=== PATIENT | female | born 1955 | race Caucasian/White ===

== ENCOUNTER → 2016-09-10 | Outpatient (CLI) | payer OTHER ==
[~2016-09-10] MED LIST: AMLO10TA2 PO; ARIP5TAB10 PO; ASCO-297 PO; ASPI-558 PO; CALC-494 PO; ESCI20TA22 PO; IBUP-1842 PO; LANS15CA5 PO; LANS15CA9 PO; LEVO175T39 PO; LEVO200T3 PO; LISI-621 PO; LISI1TAB11 PO; MULT-806 PO; MULT-980 PO; SIMV10TA6 PO; SIMV5TAB PO; TRAM50TA4 PO; VIT1CAPS21 PO
--- NOTE | 2016-09-10 15:27 | DI ---
Indication: ITS.REASON: [id number] left shoulder pain for several months. No reported trauma. PROCEDURE: MRI SHOULDER LEFT W/O CONTRAST: Encounter: Initial Comparison: None Technique: Multiplanar multisequence MR imaging of the left shoulder was performed without contrast. Findings: There is a longitudinal split tear of the long head biceps tendon best seen on axial image #10. The tendon is located within the bicipital groove. There is some tendinopathy or partial tearing of the distal subscapularis tendon. There is articular surface partial tearing of the distal supraspinatus tendon involving approximately 50% depth of the anterior half of the tendon. No complete or full-thickness tear appreciated. The infraspinatus and teres minor tendons are intact. No acute fracture. Mild acromioclavicular degenerative change. Severe glenohumeral degenerative change with a [id number] appearance and subchondral cyst formation with extensive edema in the humeral head. Extensive degenerative tearing of the labrum. Mild atrophy of the supra and infraspinatus muscles. Impression: 1. Advanced degenerative change of the glenohumeral joint. 2. Partial tearing of the supraspinatus. 3. Longitudinal split tear of the long head biceps. .
== END ==
LOC: IMA 13:30
PROVIDERS: ATTEND Orthopaedic Surgery
DX: S46.012A Strain of muscle(s) and tendon(s) of the rotator cuff of left shoulder, initial encounter (principal); S46.112A Strain of muscle, fascia and tendon of long head of biceps, left arm, initial encounter; X58.XXXA Exposure to other specified factors, initial encounter; Y93.9 Activity, unspecified; Y92.9 Unspecified place or not applicable; Y99.9 Unspecified external cause status; M19.012 Primary osteoarthritis, left shoulder; M13.812 Other specified arthritis, left shoulder

== ENCOUNTER 2016-10-04 07:22 | Inpatient (IN) | payer OTHER ==
--- NOTE | 2016-09-14 12:00 | NUR ---
PMH, allergies, meds reviewed and documented. Preop and DOS instructions given including handouts of medications to stop before surgery, shower instructions with CHG soap, Surgical Services pamphlet, and my contact information.
--- NOTE | 2016-09-28 13:11 | NUR ---
Medication dosage Discrepancy noted between patient med list, Dr Max med list with regard to Lisinopril/HCTZ dosage, dosage confirmed with [facility] and courtesy letter faxed to Dr Max.
[~2016-10-04] VITALS: Ht 172.7 cm; Wt 105.5 kg
[2016-10-04] VITALS (29 sets, daily range): BP systolic 102–138; BP diastolic 53–96; PULSE 68–105; RESP 12–18; TEMP 96.2–98; O2SAT 88–98; Ht 172.7 cm; Wt 105.5 kg
[~2016-10-04 07:22] MED LIST changes: +ACETAMINOPHEN 500 MG TABLET PO ONE; -ASPI-558 PO; +EPINEPHRINE 0.25 MG, BUPIVACAINE 0.25% 75 MG, KETOROLAC 60 MG in NORMAL SALINE 30 ML INJ ONE; +FAMOTIDINE 20mg IVPB 50 ML IV ONE; -LANS15CA5 PO; -LEVO175T39 PO; +LIDOCAINE 1% (10mg/ml) 2ml SDV SQ ONE; +LR 1,000 ML IV SCH; +METOCLOPRAMIDE 10mg/2ml INJECTION IV ONE; -MULT-806 PO; +NOZIN NASAL SWAB NS ONE; +ONDANSETRON 4mg/2ml INJECTION IV ONE; -SIMV10TA6 PO; +SIMV20TA6 PO; -SIMV5TAB PO
--- OUTSIDE RECORDS SUMMARY | 2016-10-04 07:26 | XMS REPORT | Referral Summary ---
Author Author [facility], [facility] Organization [facility] Address Unknown Phone Unavailable Care Team Providers Care Career Development Facilitator Name Role Phone Omar Max Primary Care Physician [phone] Encounter VC Date(s): 04/16/16 - 04/16/16 [facility], [address] [place] [address] Discharge Diagnosis: Depression Discharge Diagnosis: Other specified hypothyroidism Discharge Diagnosis: Other hyperlipidemia Discharge Diagnosis: Need for hepatitis C screening test Discharge Diagnosis: HTN (hypertension) Discharge Diagnosis: Acute serous otitis media of left ear without rupture Discharge Disposition: 01-Home or Self Care Attending Physician: Kizzy Max DO Admitting Physician: Kizzy Max DO Vital Signs Most recent to 1 oldest [Reference Range]: Temperature Tympanic 36.8 degC [36.6-38.1 degC] (04/16/16 1:03 PM) Peripheral Pulse 88 bpm Rate [60-100 bpm] (04/16/16 1:03 PM) Respiratory Rate 16 br/min [14-20 br/min] (04/16/16 1:03 PM) Blood Pressure 138/80 mmHg [90-140/60-90 mmHg] (04/16/16 1:03 PM) SpO2 98 % (04/16/16 1:03 PM) Problem List Condition Effective Dates Status Health Status Informant Depression(Confirmed Resolved ) GERD(Confirmed) Resolved S/P total knee Active arthroplasty(Confirm ed) HX of chronic pelvic Active pain, and chronic diffuse trigonitis(Confirmed ) Hx of mild chronic Active IC(Confirmed) HX of difficulty Active w/urination, and urethral stenosis(Confirmed) HX of painless Active microscopic hematuria & trabeculated bladder(Confirmed) HTN Resolved (hypertension)(Confi rmed) Hyperlipidemia(Confi Resolved rmed) Hypothyroid(Confirme Resolved d) Hypothyroidism Active (disorder)(Confirmed ) Meniere's disease, Active right ear(Confirmed) Obesity(Confirmed) Active patient Patellar tendonitis Active of left knee(Confirmed) Primary Active osteoarthritis of left knee(Confirmed) TINNITUS, Active UNSPECIFIED(Confirme d) Tobacco Active patient user(Confirmed) Allergies, Adverse Reactions, Alerts Substance Reaction Severity Status morphine Hallucinations Active nitrofurantoin Active Percocet 5/325 Hallucinations Active sulfamethoxazole Active trimethoprim Active Medications amLODIPine 10 mg oral tablet See Instructions, TAKE ONE TABLET BY MOUTH EVERY DAY, # 90 tabs, 3 Refill(s), Pharmacy: [facility], TAKE ONE TABLET BY MOUTH EVERY DAY Start Date: 03/13/15 Status: Ordered ARIPiprazole 5 mg oral tablet See Instructions, TAKE ONE TABLET BY MOUTH ONCE DAILY, # 30 tabs, 3 Refill(s), eRx: [id number], TAKE ONE TABLET BY MOUTH ONCE DAILY Start Date: 02/09/16 Status: Ordered Aspir 81 mg, Oral, Daily, 0 Refill(s) Start Date: 11/20/13 Status: Ordered Augmentin 875 mg-125 mg oral tablet 1 tabs, Oral, q12hr, X 10 days, # 20 tabs, 0 Refill(s), Pharmacy: [place] [id number] Start Date: 04/16/16 Stop Date: 04/26/16 Status: Ordered Calcium 600+D 1 tabs, Oral, Daily, 0 Refill(s) Start Date: 08/13/14 Status: Ordered escitalopram 20 mg oral tablet See Instructions, TAKE ONE TABLET BY MOUTH ONCE DAILY, # 90 tabs, eRx: [id number], TAKE ONE TABLET BY MOUTH ONCE DAILY Start Date: 03/22/16 Status: Ordered lisinopril 20 mg oral tablet 1 tabs, Oral, Daily, # 30 tabs, 0 Refill(s) Start Date: 08/16/14 Status: Ordered lisinopril-hydrochlorothiazide 10 mg-12.5 mg oral tablet 1 tabs, Oral, Daily, # 30 tabs, 0 Refill(s), other reason (Rx) Start Date: 01/21/16 Status: Ordered multivitamin Daily, 0 Refill(s) Start Date: 11/20/13 Status: Ordered Prevacid 15 mg oral delayed release capsule 1 caps, Oral, BID, dc order for generic-insurance will only fill name brand prevacid, # 180 caps, 3 Refill(s), Indication: Gerd, Pharmacy: [id number], Insurance said they will cover Prevacid- not the generic- please fill with Prevacid does... Start Date: 02/27/14 Status: Ordered simvastatin 10 mg oral tablet See Instructions, TAKE ONE TABLET BY MOUTH AT BEDTIME, # 90 tabs, eRx: [id number], TAKE ONE TABLET BY MOUTH AT BEDTIME Start Date: 03/19/16 Status: Ordered Synthroid 200 mcg (0.2 mg) oral tablet See Instructions, TAKE ONE TABLET BY MOUTH ONCE DAILY, # 30 tabs, 2 Refill(s), LIDA, eRx: [id number], TAKE ONE TABLET BY MOUTH ONCE DAILY Start Date: 04/09/16 Status: Ordered Tylenol Extra Strength See Instructions, as needed for pain, 325 mg Oral q6hr, 0 Refill(s) Start Date: 05/23/14 Status: Ordered Vitamin C 500 mg oral tablet 2 tabs, Oral, Daily, 0 Refill(s) Start Date: 11/20/13 Status: Ordered Voltaren 1% topical gel 2 g, Topical, QID, # 100 g, 2 Refill(s), Pharmacy: [id number] Start Date: 07/03/15 Status: Ordered Results Chemistry Most recent to 1 oldest [Reference Range]: Sodium Lvl [135-144 143 mEq/L mEq/L] (04/16/16 1:45 PM) Potassium Lvl 4.4 mEq/L [3.5-5.2 mEq/L] (04/16/16 1:45 PM) Chloride [99-111 103 mEq/L mEq/L] (04/16/16 1:45 PM) CO2 [22-31 mEq/L] 31 mEq/L (04/16/16 1:45 PM) AGAP [3-20] 9 (04/16/16 1:45 PM) BUN [10-20 mg/dL] 11 mg/dL (04/16/16 1:45 PM) Glucose Lvl [70-99 76 mg/dL mg/dL] (04/16/16 1:45 PM) Creatinine Lvl 0.82 mg/dL [0.57-1.11 mg/dL] (04/16/16 1:45 PM) eGFR [>60 mL/min] >60 mL/min 1 (04/16/16 1:45 PM) Calcium Lvl 10.1 mg/dL [8.9-10.5 mg/dL] (04/16/16 1:45 PM) Albumin Lvl [3.4-4.8 4.4 gm/dL gm/dL] (04/16/16 1:45 PM) Total Protein 6.9 gm/dL [6.0-7.6 gm/dL] (04/16/16 1:45 PM) Globulin [1.8-4.0 2.5 gm/dL gm/dL] (04/16/16 1:45 PM) ALT [0-55 U/L] 21 U/L (04/16/16 1:45 PM) AST [5-34 U/L] 20 U/L (04/16/16 1:45 PM) Alk Phos [40-150 121 U/L U/L] (04/16/16 1:45 PM) Bili Total [0.2-1.2 0.4 mg/dL mg/dL] (04/16/16 1:45 PM) Hep C Ab Negative (04/16/16 1:45 PM) TSH with Reflex Free 0.81 T4 [0.35-4.94] (04/16/16 1:45 PM) 1Result Comment: Multiply eGFR results by 1.21 for race. Immunizations Vaccine Date Refusal Reason hepatitis B adult vaccine 05/14/11 measles/mumps/rubella virus vaccine 05/14/11 pneumococcal 13-valent conjugate vaccine 03/13/15 pneumococcal 23-polyvalent vaccine 10/30/08 tetanus-diphth toxoids (Td) adult/adol 03/13/15 tetanus-diphth toxoids (Td) adult/adol 12/24/02 Procedures Procedure Date Related Diagnosis Body Site Collection of venous blood by venipuncture 04/16/16 L TKA [facility] 06/11/14 Cystoscopy, urethral calibration, and 07/31/07 dilation Hydrodistention, and SLT laser vaporation 07/31/07 Cryosurgery Dilation and curettage History of rhinoplasty Hysterectomy Tonsillectomy and adenoidectomy Total shoulder replacement 1715.36 OA GLOBAL ENDS 09/09/2014 Social History Social History Type Response Smoking Status Current every day smoker; Type: Cigarettes; Tobacco use per day: Less than Pack; Ready to change: No Assessment and Plan Extracted from: Title: Ambulatory Patient Education Author: Kizzy Max DO Date: ENT Otitis Media, Adult Otitis media is redness, soreness, and inflammation of the middle ear. Otitis media may be caused by allergies or, most commonly, by infection. Often it occurs as a complication of the common cold. SIGNS AND SYMPTOMS Symptoms of otitis media may include: Earache. Fever. Ringing in your ear. Headache. Leakage of fluid from the ear. DIAGNOSIS To diagnose otitis media, your health care provider will examine your ear with an otoscope. This is an instrument that allows your health care provider to see into your ear in order to examine your eardrum. Your health care provider also will ask you questions about your symptoms. TREATMENT Typically, otitis media resolves on its own within 35 days. Your health care provider may prescribe medicine to ease your symptoms of pain. If otitis media does not resolve within 5 days or is recurrent, your health care provider may prescribe antibiotic medicines if he or she suspects that a bacterial infection is the cause. HOME CARE INSTRUCTIONS If you were prescribed an antibiotic medicine, finish it all even if you start to feel better. Take medicines only as directed by your health care provider. Keep all follow-up visits as directed by your health care provider. SEEK MEDICAL CARE IF: You have otitis media only in one ear, or bleeding from your nose, or both. You notice a lump on your neck. You are not getting better in 35 days. You feel worse instead of better. SEEK IMMEDIATE MEDICAL CARE IF: You have pain that is not controlled with medicine. You have swelling, redness, or pain around your ear or stiffness in your neck. You notice that part of your face is paralyzed. You notice that the bone behind your ear (mastoid) is tender when you touch it. MAKE SURE YOU: Understand these instructions. Will watch your condition. Will get help right away if you are not doing well or get worse. This information is not intended to replace advice given to you by your health care provider. Make sure you discuss any questions you have with your health care provider. Document Released: 03/04/2005 Document Revised: 06/20/2015 Document Reviewed: [employer] Patient Education 2016 [employer] No follow up information was provided. Extracted from: Title: Office Visit Note Author: Kizzy Max DO Date: 04/16/16 Assessment/Plan Acute serous otitis media of left ear without rupture Amoxicillin, return to clinic if not improving. Ordered: Office Visit Level 4 Est 88062 Depression Continue current regimen, return to clinic in 6 months. Ordered: Office Visit Level 4 Est 57648 HTN (hypertension) Continue current regimen, return to clinic in 6 months. Ordered: Office Visit Level 4 Est 27764 Need for hepatitis C screening test Patient requested screening as she has not had had one, further recommendations after results. Ordered: Office Visit Level 4 Est 71841 Other hyperlipidemia CMP today, continue current regimen, return to clinic in 6 months. Ordered: Office Visit Level 4 Est 44724 Other specified hypothyroidism TSH today with further recommendations after results, return to clinic in 6 months. Ordered: Office Visit Level 4 Est 50384
--- OUTSIDE RECORDS SUMMARY | 2016-10-04 07:26 | XMS REPORT | Continuity of Care Document ---
Author Author [facility] Organization [facility] Address Unknown Phone Unavailable Care Team Providers Care Electrical And Instrument Technician Name Role Phone Sharri Todd Primary Care Physician [phone] Source Comments Some departments are not documenting in the electronic medical record. If you do not see the information that you expected, contact Release of Information in the Health Information Management department at [phone] for further assistance in locating additional records.[facility] Active Allergies and Adverse Reactions Allergen Noted Date Severity Reactions Comments Macrobid 04/15/2011 SEE COMMENTS Can't breathe Current Medications Prescription Sig. Disp. Refills Start End Date Status Date pentosan polysulfate Take 100 mg by mouth Active sodium (ELMIRON) 100 mg twice daily. Cap amLODIPine (NORVASC) 10 Take 10 mg by mouth Active mg tablet daily. estradiol (ESTRACE) 1 mg Take 1 mg by mouth daily. Active tablet citalopram (CELEXA) 40 mg Take 40 mg by mouth Active tablet daily. metoprolol XL (TOPROL XL) Take 50 mg by mouth Active 50 mg tablet daily. levothyroxine (SYNTHROID) Take 200 mcg by mouth Active 200 mcg tablet daily. lansoprazole DR Take 15 mg by mouth Active (PREVACID) 15 mg capsule daily. ASCORBATE CALCIUM Take 500 mg by mouth. Active (VITAMIN C PO) CALCIUM CARBONATE/VITAMIN Take by mouth. Active D3 (CALCIUM + D PO) MULTIVITAMIN PO Take by mouth. Active niacin 250 mg tablet Take 250 mg by mouth Active daily. Aspirin 81 mg Tab Take by mouth. Active ACETAMINOPHEN/DP-HYDRAM Take by mouth. Active HCL (TYLENOL PM PO) triamterene-hydrochloroth Take 1 Cap by mouth every 90 Cap 3 04/15/20 Active iazide (DYAZIDE) 37.5-25 morning. 11 mg per capsule methylPREDNIsolone Take 1 Tab by mouth Take 21 Tab 0 04/15/20 Active (MEDROL DOSPACK) 4 mg as directed. Follow 11 tablet instructions on package Active Problems Problem Noted Date Meniere disease 04/15/2011 Social History Tobacco Use Types Packs/Day Years Used Date Current Every Day Smoker Cigarettes Smokeless Tobacco: Never Used Alcohol Use Drinks/Week oz/Week Comments Yes 3 Standard 1.5 drinks or equivalent Last Filed Vital Signs Vital Sign Reading Time Taken Blood Pressure 150/84 04/15/2011 12:54 PM CDT Pulse 73 04/15/2011 12:54 PM CDT Temperature - - Respiratory Rate - - Height 1.727 m (5' 8") 04/15/2011 12:54 PM CDT Weight 98.975 kg (218 lb 3.2 oz) 04/15/2011 12:54 PM CDT Body Mass Index 33.18 04/15/2011 12:54 PM CDT Oxygen Saturation - - Plan of Care Health Maintenance Due Date Last Done Comments Hepatitis C Screening 1954 Physical (Comprehensive) 1961 Exam Pertussis Vaccine 1965 Tetanus Vaccine 1971 Cervical Cancer Screening 1975 Breast Cancer Screening 1994 Colorectal Cancer 2004 Screening Shingles Vaccine 2014 Influenza Vaccine 02/11/2017 Results from Last 3 Months Not on file
--- OUTSIDE RECORDS SUMMARY | 2016-10-04 07:27 | XMS REPORT | Continuity of Care Document ---
Author Author [facility] Organization [facility] Address Unknown Phone Unavailable Care Team Providers Care Pig Handler Name Role Phone MARIMAR DUTTON DO Primary Care Physician [phone] Insurance Providers Guarantor Sarah Cao Address [address] [place] [address] Email DENIED Payer [facility] Policy Number [id number] Subscriber's Name Sarah Cao Relationship 18 Self Group Number [id number] Effective Date 15 Chief Complaint and Reason for Visit Chief Complaint Ear Pain/Injury Reason for Visit [id number] Problems Active Problems Medical Problem Onset Date Status Eustachian tube dysfunction Unknown Acute Lip laceration Unknown Acute Past Problems Medical Problem Onset Date Eustachian tube dysfunction Unknown Medications Current Home Medications Medication Dose Units Route Directions Days Qty Instructions Start Date Amlodipine Besylate 10 Mg Tablet 10 Mg Oral Daily 04/14/16 Ascorbic Acid (Vitamin C) 1,000 Mg Tablet 1,000 Mg Oral Daily 25/03 Aspirin (Aspir 81) 81 Mg Tablet. 81 Mg Oral Daily 12/23/09 Calcium Citrate/Vitamin D3 (Citracal + D Caplet) 1 Tab Tablet 2 Tab Oral Daily 12/23/09 Escitalopram Oxalate (Lexapro) 20 Mg Tablet 20 Mg Oral Bedtime Lansoprazole (Prevacid) 15 Mg Capsule. 15 Mg Oral Daily Levothyroxine Sodium (Synthroid) 175 Mcg Tablet 175 Mcg Oral Daily 12/23/09 Multivitamins (Multivitamin) 1 Tab Tablet 1 Tab Oral Daily Simvastatin 5 Mg Tablet 5 Mg Oral Bedtime 09/11/13 Past Home Medications Medication Directions Ordered Status Mariia , 12/23/09 Discontinued Amlodipine Besylate (Norvasc) 5 Mg Tablet, 10 Mg Oral Daily 12/23/09 Discontinued Benzonatate (Tessalon Perles 200MG) 200 Mg Capsule, 200 Mg Oral As Needed 25/03 Discontinued Escitalopram Oxalate (Lexapro) 10 Mg Tablet, 20 Mg Oral Daily 12/23/09 Discontinued Fish Oil/[place]-3 Fatty Acids (Fish Oil 1,000 Mg Capsule) 1 Cap Capsule, 1 Cap Oral Daily 11/12/08 Discontinued Guaifenesin/D-Methorphan Hb (Mucinex Dm Tablet) 1 Tab.sr .12 H Tablet, 1 Tab.sr Oral As Needed 07/04/09 Discontinued Levofloxacin (Levaquin) 500 Mg Tablet, 500 Mg Oral Daily 12/23/09 Discontinued Meloxicam (Mobic) 15 Mg Tablet, 15 Mg Oral 0.5 Daily 11/12/08 Discontinued Norvasc , 12/23/09 Discontinued [place]-3 Fatty Acids (Fish Oil Concentrate) 1,000 Mg Capsule, 12/23/09 Discontinued Steroid Cream , 07/04/09 Discontinued Sulfamethoxazole/Trimethoprim (Bactrim Ds) 1 Tab Tablet, 1 Tab Oral Twice A Day 09/13/08 Discontinued Tramadol Hcl 50 Mg Tablet, 50 Mg Oral As Needed 12/23/09 Discontinued Social History Social History Problem Response Recorded Date/Time Onset Date Status Hx Substance Use No 09/11/2013 7:41am Not Applicable Not Applicable Hx Alcohol Use Y 3-4 WK 09/11/2013 7:41am Not Applicable Not Applicable Tobacco Usage none 09/11/2013 7:48am Not Applicable Not Applicable Hospital Discharge Instructions No hospital discharge instructions. Plan of Care Discharge Date 04/14/16 7:16pm Disposition 01 DISCHARGED HOME, SELF-CARE Condition at Discharge Stable Instructions/Education Provided DI for Eustachian Tube Dysfunction-Adult Prescriptions See Medication Section Referrals MARIMAR DUTTON DO Additional Instructions/Education Coricidin HBP if not, short course of Sudafed Flonase nasal spray twice a day for 3 days then once daily afterwards Zyrtec at bedtime Functional Status No functional status results. Allergies, Adverse Reactions, Alerts Allergen Type Severity Reaction Status Last Updated Sulfa (Sulfonamide Antibiotics) Allergy Mild Active 04/14/16 Nitrofurantoin Allergy Severe CAN'T BREATH Active 04/14/16 Immunizations Query Response on File Recorded Date/Time Hx Influenza Vaccination Y 03/2109/11/13 7:41am Hx Pneumococcal Vaccination No 09/11/13 7:41am Hx Influenza Vaccination Y 03/2109/11/13 7:41am Hx Tetanus Diptheria Y NOVEMBER 19 09/11/13 7:41am Influenza Vaccine Hx FALL 201504/14/16 6:46pm Tetanus Diptheria Vaccine History UP TO DATE 04/14/16 6:46pm Vital Signs Acute Vital Signs Vital Response Date/Time Temperature (Fahrenheit) 97.3 deg F (96.8 - 99.1) 04/14/2016 6:44pm Temperature (Calculated Celsius) 36.76284 degrees C (36.0 - 37.3) 04/14/2016 6:44pm Pulse Rate (adult) 65 bpm (60 - 100) 04/14/2016 6:44pm Respiratory Rate 16 breaths/min (10 - 20) 04/14/2016 6:44pm O2 Sat by Pulse Oximetry 95 % (90 - 100) 04/14/2016 6:44pm Blood Pressure 138/77 mm Hg 04/14/2016 6:44pm Height (Inches) 66.12 inches 04/14/2016 6:44pm Weight (Kilograms) 105.700 kg 04/14/2016 6:44pm Body Mass Index (BMI) 37.0 04/14/2016 6:44pm Results No known relevant diagnostic tests, laboratory data and/or discharge summary. Procedures No known history of procedures. Encounters Encounter Location Arrival/Admit Date Discharge/Depart Date Attending Provider Departed Emergency Room [facility] 04/14/16 5:55pm 04/14/16 7: 16pm DARVIN ZIEGLER APRN Recent Diagnosis
--- OUTSIDE RECORDS SUMMARY | 2016-10-04 07:27 | XMS REPORT | Continuity of Care Document ---
Author Author [facility] Organization [facility] Address Unknown Phone Unavailable Allergies Active Description Code Type Severity Reaction Onset Reported/Identified Relationship to Patient Clinical Status Yes Morphine 1545 Unknown N/A Yes Percocet 6992 Unknown N/A Yes Sulfa (Sulfonamide Antibiotics) 491 Unknown N/A Yes nitrofurantoin nitrofurantoin Drug Allergy Unknown N/A 08/08/2008 Yes MACROBID MACROBID Drug Allergy Unknown TROUBLE BREATHING 08/09/2008 Yes NO KNOW CONTRAST MEDIA ALLERGY NO KNOW CONTRAST MEDIA ALLERGY Drug Allergy Unknown N/A 2008 Yes No Known Contrast Allergies No Known Contrast Allergies Drug Allergy Unknown N/A 08/09/2008 Yes No Known Food Allergies No Known Food Allergies Drug Allergy Unknown N/A 08/09/2008 Yes NO KNOWN LATEX ALLERGY/SENSITI NO KNOWN LATEX ALLERGY/SENSITI Drug Allergy Unknown N/A 2008 Yes No Known Other Allergies No Known Other Allergies Drug Allergy Unknown N/A 08/09/2008 Yes Bactrim 5086 Unknown N/A 10/10/2012 Yes MACROBID MACROBID Drug Allergy Severe TROUBLE BREATHING 06/04/2014 Yes nitrofurantoin nitrofurantoin Drug Allergy Severe TROUBLE BREATHING 06/04/2014 Yes sulfamethoxazole sulfamethoxazole Drug Allergy Severe TROUBLE BREATHING 06/04/2014 Yes trimethoprim trimethoprim Drug Allergy Severe TROUBLE BREATHING 06/04/2014 Yes nitrofurantoin nitrofurantoin Drug Allergy Unknown UNKNOWN 06/04/2014 Yes sulfamethoxazole sulfamethoxazole Drug Allergy Unknown UNKNOWN 06/04/2014 Yes trimethoprim trimethoprim Drug Allergy Unknown UNKNOWN 06/04/2014 Medications Medication Packaging Start Date Stop Date Route Dosage Sig DOCUSATE SODIUM 09/27/2016 09/27/2016 BIDPRN ZOLPIDEM 09/27/2016 09/27/2016 HSPRN ACETAMINOPHEN 09/27/2016 09/27/2016 Q4HPRN ACETAMINOPHEN 09/27/2016 09/27/2016 Q4HPRN SODIUM CHLORIDE 0.9 % 09/27/2016 09/27/2016 PRNIV ALUM-MAG HYDROXIDE-SIMETH 09/27/2016 09/27/2016 Q4HPRN MAGNESIUM HYDROXIDE 09/27/2016 09/27/2016 HSPRN NITROGLYCERIN 09/27/2016 09/27/2016 PRNCP ACETAMINOPHEN 09/27/2016 09/27/2016 Q4HPRN Problems Date Dx Coded Attending Type Code Diagnosis Diagnosed By 06/11/2014 Erick Villegas MD 244.9 HYPOTHYROIDISM NOS 06/11/2014 Erick Villegas MD 272.4 HYPERLIPIDEMIA NEC/NOS 06/11/2014 Erick Villegas MD 305.1 TOBACCO USE DISORDER 06/11/2014 Erick Villegas MD 311 DEPRESSIVE DISORDER NEC 06/11/2014 Erick Villegas MD 349.82 TOXIC ENCEPHALOPATHY 06/11/2014 Erick Villegas MD 386.00 MENIERE'S DISEASE, UNSPECIFIED 06/11/2014 Erick Villegas MD 401.9 HYPERTENSION NOS 06/11/2014 Erick Villegas MD 427.89 CARDIAC DYSRHYTHMIAS NEC 06/11/2014 Erick Villegas MD 443.9 PERIPH VASCULAR DIS NOS 06/11/2014 Erick Villegas MD 496 CHR AIRWAY OBSTRUCT NEC 06/11/2014 Erick Villegas MD 518.81 ACUTE RESPIRATORY FAILURE 06/11/2014 Erick Villegas MD 530.81 ESOPHAGEAL REFLUX 06/11/2014 Erick Villegas MD 584.9 ACUTE RENAL FAILURE, UNSPECIFIED 06/11/2014 Erick Villegas MD 715.36 LOC OSTEOARTH NOS-L/LEG 06/11/2014 Erick Villegas MD 736.41 GENU VALGUM 06/11/2014 Erick Villegas MD 780.57 UNSPECIFIED SLEEP APNEA 06/11/2014 Erick Villegas MD 788.20 RETENTION OF URINE NOS 06/11/2014 Erick Villegas MD 790.29 OTHER ABNORMAL GLUCOSE 06/11/2014 Erick Villegas MD V43.61 SHOULDER JOINT REPLACEMENT STATUS Procedures Code Description Performed By Performed On 81.54 TOTAL KNEE REPLACEMENT Erick Villegas MD 06/11/2014 Results Test Result Range MRSA SURVEILLANCE SCREEN - 06/04/14 14:29 Microbiology CBC W/DIFF - 06/04/14 14:38 BASOPHIL # 0.1 k/cumm 0.0-0.2 BASOPHIL % 1 % 0-1 EOSINOPHIL # 0.3 k/cumm 0.1-0.5 EOSINOPHIL % 3 % 2-4 GRANULOCYTE # 7.6 k/cumm 2.0-9.0 GRANULOCYTE % 63 % 50-75 LYMPHOCYTE # 3.4 k/cumm 1.0-4.0 LYMPHOCYTE % 28 % 20-30 MEAN CELL HGB 30.0 pg 27.0-33.0 MEAN CELL HGB CONCENTRATION 34.1 g/dL 32.0-37.0 MEAN CELL VOLUME 88.0 fl 80.0-100.0 MONOCYTE # 0.6 k/cumm 0.1-1.0 MONOCYTE % 5 % 4-6 RED BLOOD CELL 5.00 m/cumm 4.00-6.00 RED CELL DISTRIBUTION WIDTH 14.6 % 11.0- 15.6 WHITE BLOOD CELL 12.0 k/cumm 5.0-10.0 HEMOGLOBIN 15.0 gm/dL 12.0-16.0 HEMATOCRIT 44.0 % 37.0-47.0 PLATELET COUNT 314 k/cumm 150-400 URINALYSIS, ROUTINE - 06/04/14 14:38 UA LEUKOCYTE ESTERASE DIPSTICK NEGATIVE NEGATIVE UA NITRITE DIPSTICK NEGATIVE NEGATIVE UA PROTEIN DIPSTICK NEGATIVE NEGATIVE UA GLUCOSE DIPSTICK NEGATIVE NEGATIVE UA KETONE DIPSTICK NEGATIVE NEGATIVE UA UROBILINOGEN DIPSTICK NORMAL NORMAL UA BILIRUBIN DIPSTICK NEGATIVE NEGATIVE UA BLOOD DIPSTICK NEGATIVE NEGATIVE UA SPECIFIC GRAVITY 1.004 1.015-1.025 UR PH 8.0 5.0-7.0 PROTHROMBIN TIME WITH INR - 06/04/14 14:38 INTERNATIONAL NORMAL RATIO 0.9 0.9-1.1 PROTHROMBIN TIME 10.1 sec 9.3-12.2 PARTIAL THROMBOPLASTIN TIME - 06/04/14 14:38 PARTIAL THROMBOPLASTIN TIME 35 sec 24-36 METABOLIC PANEL, BASIC - 06/04/14 14:38 POTASSIUM 4.1 mmol/L 3.5-5.3 EST GFR (MDRD) > 60 mL/min > 59 ANION GAP 6 mmol/L 5-15 EST CrCl (CG) > 60 mL/min > 59 GLUCOSE 77 mg/dL 70-99 CALCIUM 9.6 mg/dL 8.5-10.1 BLOOD UREA NITROGEN 11 mg/dL 7-20 CREATININE 0.8 mg/dL 0.6-1.0 SODIUM 138 mmol/L 135-148 CHLORIDE 102 mmol/L 98-110 CARBON DIOXIDE 30 mmol/L 21-32 GRAM STAIN - 06/11/14 13:09 Microbiology AFB SMEAR - 06/11/14 13:09 Microbiology FUNGUS SMEAR - 06/11/14 13:09 Microbiology GLUCOSE (POC) - 06/12/14 04:19 GLUCOSE (POC) 308 mg/dL 70-99 ARTERIAL BLOOD GAS - 06/12/14 04:26 ABG BASE EXCESS -5.3 meq/L -3.0-3.0 ABG BICARBONATE 25.7 meq/L 23.0-28.0 ABG L/M 10.0 ABG PCO2 81 mm Hg 34-45 ABG PEEP 8 CM ABG PH 7.12 7.35-7.45 ABG PEAK INSPIRATORY PRESSURE 20 CM ABG PO2 55 mm Hg 75-100 ABG VENT RATE 16 ABG O2 SATURATION 80 % 93-100 ABG SITE RT RADIAL CBC - 06/12/14 04:44 MEAN CELL HGB 29.6 pg 27.0-33.0 MEAN CELL HGB CONCENTRATION 31.9 g/dL 32.0-37.0 MEAN CELL VOLUME 92.9 fl 80.0-100.0 RED BLOOD CELL 4.25 m/cumm 4.00-6.00 RED CELL DISTRIBUTION WIDTH 15.1 % 11.0- 15.6 WHITE BLOOD CELL 18.0 k/cumm 5.0-10.0 HEMOGLOBIN 12.6 gm/dL 12.0-16.0 HEMATOCRIT 39.5 % 37.0-47.0 PLATELET COUNT 294 k/cumm 150-400 METABOLIC PANEL, COMPREHN - 06/12/14 04:44 POTASSIUM 3.9 mmol/L 3.5-5.3 EST GFR (MDRD) 27 mL/min > 59 ANION GAP 13 mmol/L 5-15 EST CrCl (CG) 36 mL/min > 59 GLUCOSE 285 mg/dL 70-99 CALCIUM 8.0 mg/dL 8.5-10.1 BLOOD UREA NITROGEN 17 mg/dL 7-20 CREATININE 2.0 mg/dL 0.6-1.0 SODIUM 135 mmol/L 135-148 CHLORIDE 98 mmol/L 98-110 AST/SGOT 22 Units/L 10-37 ALT/SGPT 24 Units/L < 66 CARBON DIOXIDE 24 mmol/L 21-32 TOTAL PROTEIN 7.0 gm/dL 6.4-8.2 ALBUMIN 3.6 gm/dL 3.4-5.0 BILI TOTAL 0.3 mg/dL 0.0-1.0 ALKALINE PHOSPHATASE TOTAL 124 IU/L 45- 117 ARTERIAL BLOOD GAS - 06/12/14 05:26 ABG BASE EXCESS -2.1 meq/L -3.0-3.0 ABG BICARBONATE 25.7 meq/L 23.0-28.0 ABG L/M 3.0 ABG PCO2 58 mm Hg 34-45 ABG PEEP 8 CM ABG PH 7.27 7.35-7.45 ABG PEAK INSPIRATORY PRESSURE 20 CM ABG PO2 85 mm Hg 75-100 ABG VENT RATE 16 ABG O2 SATURATION 95 % 93-100 ABG SITE RT RADIAL GLUCOSE (POC) - 06/12/14 11:09 GLUCOSE (POC) 81 mg/dL 70-99 METABOLIC PANEL, BASIC - 06/12/14 14:27 POTASSIUM 3.9 mmol/L 3.5-5.3 EST GFR (MDRD) 33 mL/min > 59 ANION GAP 7 mmol/L 5-15 EST CrCl (CG) 42 mL/min > 59 GLUCOSE 119 mg/dL 70-99 CALCIUM 8.1 mg/dL 8.5-10.1 BLOOD UREA NITROGEN 21 mg/dL 7-20 CREATININE 1.7 mg/dL 0.6-1.0 SODIUM 135 mmol/L 135-148 CHLORIDE 101 mmol/L 98-110 CARBON DIOXIDE 27 mmol/L 21-32 GLUCOSE (POC) - 06/12/14 15:32 GLUCOSE (POC) 114 mg/dL 70-99 GLUCOSE (POC) - 06/12/14 20:31 GLUCOSE (POC) 112 mg/dL 70-99 CBC - 06/13/14 04:46 MEAN CELL HGB 29.1 pg 27.0-33.0 MEAN CELL HGB CONCENTRATION 32.4 g/dL 32.0-37.0 MEAN CELL VOLUME 89.9 fl 80.0-100.0 RED BLOOD CELL 3.78 m/cumm 4.00-6.00 RED CELL DISTRIBUTION WIDTH 14.3 % 11.0- 15.6 WHITE BLOOD CELL 12.6 k/cumm 5.0-10.0 HEMOGLOBIN 11.0 gm/dL 12.0-16.0 HEMATOCRIT 34.0 % 37.0-47.0 PLATELET COUNT 232 k/cumm 150-400 METABOLIC PANEL, BASIC - 06/13/14 04:46 POTASSIUM 3.9 mmol/L 3.5-5.3 EST GFR (MDRD) 44 mL/min > 59 ANION GAP 4 mmol/L 5-15 EST CrCl (CG) 55 mL/min > 59 GLUCOSE 121 mg/dL 70-99 CALCIUM 8.3 mg/dL 8.5-10.1 BLOOD UREA NITROGEN 16 mg/dL 7-20 CREATININE 1.3 mg/dL 0.6-1.0 SODIUM 137 mmol/L 135-148 CHLORIDE 103 mmol/L 98-110 CARBON DIOXIDE 30 mmol/L 21-32 GLUCOSE (POC) - 06/13/14 06:34 GLUCOSE (POC) 124 mg/dL 70-99 GLUCOSE (POC) - 06/13/14 11:41 GLUCOSE (POC) 126 mg/dL 70-99 GLUCOSE (POC) - 06/13/14 15:28 GLUCOSE (POC) 106 mg/dL 70-99 GLUCOSE (POC) - 06/13/14 21:17 GLUCOSE (POC) 143 mg/dL 70-99 CBC - 06/14/14 04:15 MEAN CELL HGB 29.4 pg 27.0-33.0 MEAN CELL HGB CONCENTRATION 32.9 g/dL 32.0-37.0 MEAN CELL VOLUME 89.4 fl 80.0-100.0 RED BLOOD CELL 3.57 m/cumm 4.00-6.00 RED CELL DISTRIBUTION WIDTH 14.1 % 11.0- 15.6 WHITE BLOOD CELL 12.3 k/cumm 5.0-10.0 HEMOGLOBIN 10.5 gm/dL 12.0-16.0 HEMATOCRIT 31.9 % 37.0-47.0 PLATELET COUNT 230 k/cumm 150-400 METABOLIC PANEL, BASIC - 06/14/14 04:15 POTASSIUM 3.9 mmol/L 3.5-5.3 EST GFR (MDRD) > 60 mL/min > 59 ANION GAP 4 mmol/L 5-15 EST CrCl (CG) > 60 mL/min > 59 GLUCOSE 132 mg/dL 70-99 CALCIUM 8.5 mg/dL 8.5-10.1 BLOOD UREA NITROGEN 9 mg/dL 7-20 CREATININE 0.8 mg/dL 0.6-1.0 SODIUM 138 mmol/L 135-148 CHLORIDE 103 mmol/L 98-110 CARBON DIOXIDE 31 mmol/L - GLUCOSE (POC) - 06/14/14 05:57 GLUCOSE (POC) 120 mg/dL 70-99 GLUCOSE (POC) - 06/14/14 10:33 GLUCOSE (POC) 186 mg/dL 70-99 GLUCOSE (POC) - 06/14/14 15:23 GLUCOSE (POC) 114 mg/dL 70-99 GLUCOSE (POC) - 06/14/14 21:07 GLUCOSE (POC) 159 mg/dL 70-99 METABOLIC PANEL, BASIC - 06/15/14 05:48 POTASSIUM 3.3 mmol/L 3.5-5.3 EST GFR (MDRD) > 60 mL/min > 59 ANION GAP 5 mmol/L 5-15 EST CrCl (CG) > 60 mL/min > 59 GLUCOSE 137 mg/dL 70-99 CALCIUM 8.5 mg/dL 8.5-10.1 BLOOD UREA NITROGEN 4 mg/dL 7-20 CREATININE 0.8 mg/dL 0.6-1.0 SODIUM 143 mmol/L 135-148 CHLORIDE 106 mmol/L 98-110 CARBON DIOXIDE 32 mmol/L GLUCOSE (POC) - 06/15/14 06:14 GLUCOSE (POC) 136 mg/dL 70-99 CBC with Auto Diff - 09/27/16 10:58 WBC - WHITE CELL COUNT 7.5 X10(3) 4.5-11.0 RBC - RED CELL COUNT 4.47 X10(6) 4.20-5.40 PLATELET COUNT 289 X10(3) 150-450 HEMOGLOBIN 13.5 g/dl 12.0-16.0 HEMATOCRIT 39.0 % 38.0-47.0 MCV 87.2 fL 80.0-96.0 MCH 30 pg 27-31 MCHC 34.6 % 32.0-36.0 LYMPHS 26.8 % 20.0-45.0 MONOS 4.3 % 0.0-15.0 NEUTROPHILS 68.9 % 40.0-80.0 LIPID PANEL - 09/27/16 10:58 CHOLESTEROL 192 mg/dl <=199 HDL CHOLESTEROL 60 mg/dl 40-60 TRIGLYCERIDES 129 mg/dl <=200 LDL, CALCULATED 106.2 mg/dl 0.0-99.0 VLDL, CALCULATED 25.8 mg/dl 0.0-130.0 CARDIAC RISK 3 BMP - BASIC METABOLIC PANEL - 09/27/16 10:58 GLUCOSE 109 mg/dl 74-106 BUN 14 mg/dl 7-18 CREATININE 0.90 mg/dl 0.55-1.02 eGFR >60 mL/min >60 SODIUM (NA) 142 mEq/L 136-146 POTASSIUM, BLOOD 4.0 mEq/L 3.5-5.1 CHLORIDE 104 mEq/L 98-107 CO2 (BICARBONATE) 31 mEq/L 21-32 CALCIUM 9.5 mg/dl 8.5-10.1 HOLD SPECIMEN FOR BLOOD BANK - 09/27/16 10:58 HOLD SPECIMEN FOR BLOOD BANK ARC LIVER PANEL - 09/27/16 10:58 ALBUMIN, SERUM 3.7 g/dl 3.4-5.0 PROTEIN, TOTAL 7.3 g/dl 6.4-8.2 AST (SGOT) 26 U/L 15-37 ALT (SGPT) 25 U/L 14-59 ALK PHOS 98 U/L 46-116 BILIRUBIN, TOTAL 0.2 mg/dl 0.2-1.0 BILIRUBIN, DIRECT 0.1 mg/dl <=0.2 I BILI CALC 0.1 mg/dL 0.2-0.8 Encounters ACCT No. Visit Date/Time Discharge Status Pt. Type Provider Facility Loc./Unit Complaint [id number] 08/30/2013 10:18:00 08/30/2013 23 :59:59 CLS Outpatient
[2016-10-04 07:53] LABS: ANION GAP 13 MEQ/L (5-15); BUN/CREATININE RATIO 21 RATIO (6-26); CALCIUM 9.3 MG/DL (8.4-10.2); CHLORIDE 102 MEQ/L (98-107); CO2 - CARBON DIOXIDE 30 MEQ/L (22-30); CREATININE 0.9 MG/DL (0.7-1.2); GLOMERULAR FILTRATION RATE 63; GLUCOSE 132 MG/DL (65-110); POTASSIUM 3.9 MEQ/L (3.6-5); SODIUM 145 MEQ/L (134-144)
[2016-10-04] MEDS ORDERED: CEFAZOLIN 2 GM VIAL IV ONE (09:45)
[2016-10-04] MEDS ORDERED: ROPIVACAINE 0.5% (5mg/ml) 30ml INJ ONE (10:07)
[2016-10-04] MEDS ORDERED: PROPOFOL 200mg 20 ML IV ONE (10:08)
[2016-10-04] MEDS ORDERED: DEXAMETHASONE 4mg/ml - 1ml INJECTION ONE (10:08)
[2016-10-04] MEDS ORDERED: ONDANSETRON 4mg/2ml INJECTION ONE (10:08)
[2016-10-04] MEDS ORDERED: MIDAZOLAM 2mg/2ml INJECTION IV ONE (10:15)
[2016-10-04] MEDS ORDERED: GENTAMICIN 80 MG/2 ML INJECTION ONE (10:18)
[2016-10-04] MEDS ORDERED: BUPIVACAINE 0.25%/EPI 1:200,000 30ml SDV ONE (10:19)
[2016-10-04] MEDS ORDERED: VANCOMYCIN 1 GRAM INJECTION ONE (10:24)
--- NOTE | 2016-10-04 10:34 | ANESPREOP ---
Anesthesia Record Date and Time DATE: 10/04/16 TIME: 1010 Proposed Surgical Procedure LT REVERSE TSA Allergies: Coded Allergies: nitrofurantoin (Verified Allergy, Severe, CAN'T BREATH, 10/04/16) Sulfa (Sulfonamide Antibiotics) (Verified Allergy, Unknown, DIFFICULTY BREATHING, 10/04/16) oxycodone (Verified Allergy, Unknown, HALLUCINATIONS, 10/04/16) sulfamethoxazole (Verified Allergy, Unknown, 10/04/16) trimethoprim (Verified Allergy, Unknown, 10/04/16) morphine (Verified Adverse Reaction, Unknown, HALLUCINATIONS PER H&P, 10/04) Ht/Wt/BMI Height: 5 ' 8.00 " Weight: 105.500 kg BMI: 35.4 kg/m2 Vital Signs Date Time Temp Pulse Resp B/P Pulse Ox O2 Delivery O2 Flow Rate FiO2 10/04/16 10:19 16 10/04/16 07:49 98.0 77 134/65 90 Room Air Medications Inpatient Medications Current Medications Medications (Trade) Dose Ordered Sig/Ulisses Start Time Stop Time Status Last Admin Dose Admin Lactated Ringer's (Lactated Ringers) 1,000 ml @ 50 mls/hr Q20H 10/04/16 07:00 10/04/16 08:30 50 MLS/HR Amlodipine Besylate (Amlodipine Besylate) 10 Mg Tablet, 10 MG PO DAILY, ( Reported) Last Taken: on 10/04/16 0620 Aripiprazole (Abilify) 5 Mg Tablet, 1 TAB PO HS , (Reported) Last Taken: on 10/03/16 2200 Ascorbic Acid (Vitamin C) 1,000 Mg Tablet, 1, 000 MG PO DAILY, (Reported) Last Taken: on 10/03/16 0800 Calcium Citrate/Vitamin D3 (Citracal + D Caplet ) 1 Tab Tablet, 2 TAB PO DAILY, (Reported) Last Taken: on 10/03/16 0800 Escitalopram Oxalate (Lexapro) 20 Mg Tablet, 20 MG PO HS, (Reported) Last Taken: on 10/03/16 2200 Ibuprofen/Diphenhydramine Cit (Ibuprofen Pm Caplet) 1 Each Tablet, 1 TAB PO HS, (Reported) Last Taken: on 09/27/16 2200 Lansoprazole (Prevacid) 15 Mg Capsule.dr, 15 MG PO DAILY, (Reported) Last Taken: on 10/04/16 0620 Levothyroxine Sodium (Synthroid) 200 Mcg Tablet , 1 TAB PO DAILY, (Reported) Last Taken: on 10/04/16 0620 Lisinopril (Lisinopril) 20 Mg Tablet, 20 MG PO HS, (Reported) Last Taken: on 10/03/16 2200 Lisinopril/Hydrochlorothiazide (Lisinopril- Hctz 20-12.5 mg Tab) 1 Each Tablet, 1 TAB PO DAILY, (Reported) Last Taken: on 10/03/16 0800 Multivits,Ca,Minerals/Iron/FA (Women's Daily Caplet) 1 Each Tablet, 1 CAP PO DAILY, (Reported) Last Taken: on 10/03/16 0800 Simvastatin (Simvastatin) 20 Mg Tablet, 20 MG PO HS, (Reported) Take 1 tablet, by mouth, 1 time a day (at BEDTIME). Last Taken: on 10/03/16 2200 Tramadol HCl (Tramadol HCl) 50 Mg Tablet, 50 MG PO Q6HR PRN for PAIN, (Reported) Take 1 tablet, by mouth, every 6 hours. Last Taken: on Unknown Date & Time Vit C/Vit E/Lutein/Min/[place]-3 (Ocuvite Softgel) 1 Each Capsule, 1 CAP PO DAILY, (Reported) Last Taken: on 09/26/16 Discontinued Medications Simvastatin (Simvastatin) 10 Mg Tablet, 10 MG PO HS, (Reported) Take 1 tablet, by mouth, 1 time a day (at BEDTIME). Currently on Beta Canelo: No Medical/Surgical History Anesthesia PMH: Reports: *Dyspnea, *Hypertension, Arthritis (OSTEOARTHRITIS), Pneumonia (2016), Reflux (well controlled), Sleep Apnea (CURRENTLY USES CPAP), Thyroid Disease, Denies: *Angina, *Diabetes, *ND, Anesthesia Reactions, Asthma, CHF, COPD, CVA/Stroke/TIA, Cancer, Deep Vein Thrombosis, Glaucoma, Headaches, Hepatitis, Hiatal Hernia, Malignant Hyperthermia, Pacemaker, Renal Disease, Rheumatic Fever, Seizures, Tuberculosis Smoking Status: Current every day smoker Has pt. smoked today?: No Use Chewing Tobacco?: No Substance Use Type: does not use Alcohol Intake: daily HX of Last Menstrual Period: HYST Past Surgical History Orthopedic Surgeries: Yes - RT SHOULDER SCOPE; RT TSA/ULNAR NERVE; LT TKA Abdominal Surgeries: Genitourinary Surgeries: Yes - CYSTO W LASER Cardiac Surgeries: Endocrine Surgeries: Reproductive Surgeries: Yes - D + C; ABD HYST Neurological Surgeries: Ear Surgeries: Nose Surgeries: Yes - DEVIATED SEPTUM/TURBINATES Throat Surgeries: Yes - TONSILLECTOMY; RHINOPLASTY Other Surgeries: Yes - COLONOSCOPY Anesthesia Adverse Reactions: FOUND none Family Hx of Anesthesia Advers: none Hx of Motion Sickness: No Pertinent Findings Laboratory Tests 10/04/16 07:36 Physical Exam Respiratory: Lungs clear Cardiovascular: FOUND Regular rate, rhythm Airway Assessment Mallampati Score: II TMD: 3 Fingerbreadths Neck Extension: Good Overall Assessment: No Airway Concerns ASA: 2 Plan Anesthesia Plan: GETA Discussion Discussed risks/options/alternatives of anesthesia and questions answered. Patient consents. Nursing pain assessment noted. Present: Family Member, Spouse Attestation Statement Prior to the delivery of any anesthetic medication, I examined the patient, developed the plan, obtained the patient's consent and discussed the risk and benefits of the procedure with the patient/guardian. FELICIA WATSON CRNA Oct 04, 2016 10:34
[2016-10-04] MEDS ORDERED: EPHEDRINE SULFATE 50mg/ml INJECTION ONE (11:03)
[2016-10-04] MEDS ORDERED: SALINE FLUSH 10ml SYRINGE ONE (11:29)
[2016-10-04] MEDS ORDERED: PHENYLEPHRINE 10mg/ml INJECTION ONE (11:29)
--- NOTE | 2016-10-04 11:47 | ANESPD ---
Peripheral Nerve Blockade Physician: Greg Hill MD Date: 10/04/16 Discussion Discussed risks/options/alternatives of anesthesia and questions answered. Patient consents. Nursing pain assessment noted. Block Start: 10:22 Block Stop: 10:27 Block Employed: [employer] Indication: post-operative pain Approach: left side confirmed Position: supine Patient: Consent, risks/benefits discussed, Informed, post block act. discussed Monitors: SpO2 IV Sedation: Yes Sedation: sedate w/meaningful contact Initial Vital Signs First Documented Vital Signs Date Time Temp Pulse Resp B/P Pulse Ox O2 Delivery O2 Flow Rate FiO2 10/04/16 07:49 98.0 77 15 134/65 90 Room Air 10/04/16 10:20 3.00 Post Vital Signs Vital Signs Date Time Temp Pulse Resp B/P Pulse Ox O2 Delivery O2 Flow Rate FiO2 10/04/16 10:30 70 12 124/60 98 Nasal Cannula 3.00 10/04/16 07:49 98.0 Initial Pain Score: 3 Post Block Score: 0 Prep: chlorhexadine/ETOH Ultrasound Used?: Yes Nerve Simulator mA set at: .5 Abates at (mA): 0.35 Parathesia/Pain: none Injectate Ropivacaine (%): 0.5 Ropivacaine (mL): 20 Was Epi 1:200,000 Used?: No Injection Injection made incrementally with constant monitoring and aspiration every [5] ml. FELICIA WATSON CRNA Oct 04, 2016 11:46
[2016-10-04] MEDS ORDERED: DiphenhydrAMINE 50 MG/ML INJECTION IV PRN (14:00)
[2016-10-04] MEDS ORDERED: DiphenhydrAMINE 25 MG CAPSULE PO PRN (14:00)
[2016-10-04] MEDS ORDERED: ONDANSETRON 4mg/2ml INJECTION IV PRN (14:00)
[2016-10-04] MEDS ORDERED: HYDROMORPHONE 2mg/ml INJECTION IV PRN (14:00)
[2016-10-04] MEDS ORDERED: NAPROXEN 220 MG TABLET PO PRN (14:00)
[2016-10-04] MEDS ORDERED: SENNOSIDES 8.6 MG TABLET PO PRN (14:00)
[2016-10-04] MEDS ORDERED: LORAZEPAM 1 MG TABLET PO PRN (14:00)
[2016-10-04] MEDS ORDERED: NOZIN NASAL SWAB NS ONE (14:00)
[2016-10-04] MEDS ORDERED: PRN ORDERS MC (14:00)
--- NOTE | 2016-10-04 14:07 | PDPROCED ---
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 Surgical Procedures: Other (Left reverse total shoulder replacement) Surgeon: Sergio Granite Sandblaster Apprentice: ZEYNEP Mathis (second assisst.) Anesthesia: General (plus regional block) Complications: none Estimated Blood Loss see anesthesia AGATA BARR Oct 04, 2016 14:07
[2016-10-04] MEDS: NORMAL SALINE 1,000 ML IV SCH (14:50)
[2016-10-04] MEDS: NOZIN NASAL SWAB NS SCH ×2 (14:56→22:57)
--- NOTE | 2016-10-04 15:10 | ANESPO ---
Post-Op Note Date 10/04/16 Time: 14:40 Status Pt Participated in Evaluation: Pt participated in person Vital Signs Date Time Temp Pulse Resp B/P Pulse Ox O2 Delivery O2 Flow Rate FiO2 10/04/16 15:01 96.2 91 16 130/69 93 Nasal Cannula 2.00 Respiratory Function: Airway patent Cardiovascular Function: Regular pulse Mental Status: Alert/oriented Pain Level Intensity: 0 Hydration: Taking po fluids Complications during Recovery None apparent Follow-Up Instructions Instructions Per Surgeon FELICIA WATSON CRNA Oct 04, 2016 15:10
[2016-10-04] MEDS: HYDROCODONE/APAP 5 mg/325 mg TABLET PO SCH ×3 (15:22→22:14)
[2016-10-04] MEDS: CEFAZOLIN 1 G in NORMAL SALINE 100 ML IV SCH (18:09)
[2016-10-04] MEDS: ASPIRIN *EC* 325mg TABLET PO SCH (21:57)
[2016-10-04] MEDS ORDERED: ESCITALOPRAM 20 MG TABLET PO SCH (22:00)
[2016-10-04] MEDS ORDERED: SIMVASTATIN 20 MG TABLET PO SCH (22:00)
[2016-10-04] MEDS ORDERED: LISINOPRIL 20 MG TABLET PO SCH (22:00)
[2016-10-04] MEDS ORDERED: SENNOSIDES 8.6 MG TABLET PO SCH (22:00)
[2016-10-04] MEDS ORDERED: ARIPIPRAZOLE 5 MG TABLET PO SCH (22:00)
--- NOTE | 2016-10-04 22:03 | OPNOTEF ---
DATE OF SURGERY 10/04/2016 SURGEON Greg Hill MD SCIENCE PROFESSOR MD Rubén Camarillo PA-C PREOPERATIVE DIAGNOSIS Severe arthritis left glenohumeral joint with rotator cuff tear and biceps tendon tears. POSTOPERATIVE DIAGNOSIS Severe arthritis left glenohumeral joint with rotator cuff tear and biceps tendon tears. OPERATION Left reverse total shoulder replacement. OPERATIVE FINDINGS Severe glenohumeral arthritis noted with bone on both glenoid and the humeral head. She had a rupture of the biceps tendon and partial rupture of the rotator cuff. DESCRIPTION OF PROCEDURE With the patient in the supine position under satisfactory general anesthesia and a left scapular block, the left upper extremity was prepped and draped sterilely. The head of bed was elevated about 30 degrees. She had received 2 g of Ancef preoperatively. No tranexamic acid was utilized. An incision was made over the deltopectoral area and deepened down through subcutaneous tissue. The deltopectoral groove was identified and held retracted laterally. A small portion of the pectoralis was cut to allow for better mobility. The capsule was identified and taken down off its attachment to the lesser tubercle. Two stay sutures were placed in the subscapularis and it was retracted. We identified the biceps tendon which had been ruptured within the bicipital groove. This was debrided away. The inferior capsule was then progressively taken down until we could dislocate the shoulder. The inferior spur was removed. With the humeral head rotated out of the joint, an awl was utilized to enter the very top of the head and enter the humeral canal. The canal was then reamed to 10 mm. The cutting guide was applied and the proximal humeral head was removed, cutting it at a 30-degree retroverted angle to the forearm. The humeral canal was then broached to accept a size 10 stem. The trial stem was left in place. The humerus was then retracted out of the way, exposing the glenoid. The periphery was debrided. Because it was tight we decided to do about a 5-mm resection of the proximal humerus and this was performed to aid exposure. Once this had been accomplished, the drill guide was placed over the glenoid and a guide pin was passed centrally through this guide into the glenoid and then exited. This hole was measured at 26 mm and a 28-mm central screw was obtained. The glenoid was then reamed down to bleeding bone. It was thoroughly irrigated and the 28-mm baseplate was then impacted. The central screw was tightened down securely. Three peripheral screws were then placed using a size 36 screw and then two size 16 peripheral screws. A trial glenosphere was inserted. We then applied a trial proximal humeral component and the initial fitting seemed to be reasonable. We then removed the trials. The actual 32-mm glenosphere was obtained and impacted onto the baseplate. It seemed be very secure. After this we planed down the inferior portion of the proximal humerus. I then broached up to a size 11 since the 10 broach seem to be loose. We then obtained the actual 11-mm humeral component and impacted this into the humeral canal. Further trials showed us that we needed an 8-mm humeral insert. The actual humeral cup and insert, size 32 mm, were obtained with an 8 ml thickness. This was then impacted onto the top of the humeral stem. It seemed to be secure. The shoulder was then reduced for a final time with good range of motion and good stability with no evidence of impingement. The subscapularis was then sutured to the capsule and remaining soft tissue using interrupted #1 Ethibond. This was after putting Betadine into the joint for two to three minutes and then adding vancomycin powder. Further closure was in a routine fashion. Sterile dressings were applied. The patient tolerated this procedure well and returned to the recovery room in good condition. Blood loss was about 300 mL. Sponge and needle count was correct. [facility]
[2016-10-05] MEDS: HYDROCODONE/APAP 5 mg/325 mg TABLET PO SCH ×3 (02:20→10:04)
[2016-10-05] MEDS: CEFAZOLIN 1 G in NORMAL SALINE 100 ML IV SCH (02:22)
--- NOTE | 2016-10-05 03:00 | NUR ---
Chart Check 24 hour chart check completed
[2016-10-05 03:34] VITALS: BP 114/65; PULSE 70; RESP 18; TEMP 95.8; O2SAT 94
[2016-10-05 05:18] LABS: HCT - HEMATOCRIT 34.9 % (36-46); HGB - HEMOGLOBIN 11.2 GM/DL (12-16); MEAN CORPUSCULAR HGB 28.9 UUG (26-34); MEAN CORPUSCULAR HGB CONC(MCHC 32.1 GM/DL (31-37); MEAN CORPUSCULAR VOLUME 89.9 UM3 (80-100); MEAN PLATELET VOLUME 9.6 UM3 (9.4-12.4); RED BLOOD COUNT 3.88 M/MM3 (4.00-5.20); WBC - WHITE BLOOD COUNT 11.2 T/MM3 (4.5-11.0)
[2016-10-05 05:25] LABS: ANION GAP 13 MEQ/L (5-15); BUN/CREATININE RATIO 19 RATIO (6-26); CHLORIDE 104 MEQ/L (98-107); CO2 - CARBON DIOXIDE 26 MEQ/L (22-30); CREATININE 0.7 MG/DL (0.7-1.2); GLOMERULAR FILTRATION RATE 85; GLUCOSE 126 MG/DL (65-110); POTASSIUM 4.3 MEQ/L (3.6-5); SODIUM 143 MEQ/L (134-144)
[2016-10-05] MEDS: NORMAL SALINE 1,000 ML IV SCH (05:43)
[2016-10-05] MEDS: NOZIN NASAL SWAB NS SCH (05:56)
[2016-10-05] MEDS ORDERED: LEVOTHYROXINE 200 MCG TABLET PO SCH (06:30)
--- NOTE | 2016-10-05 06:30 | NUR ---
STATUS PATIENT ALTER AND ORIENTED X3. PATIENT C/O PAIN TO LT SHOULDER. PATIENT RATED PAIN 7/10 THIS MORNING.NORCO 5 Q4H WAS ADMINISTRATED. PRN ALEVE WAS GIVEN PER ORDER .PATIENT'S SPO2 DROP TO 86%-84 % DURING SLEEP PER STEAM AND GAS TURBINE ASSEMBLER REPORTED.PATIENT USED CPAP WITH 2L O2 DURING SLEEP AT NIGHT. PATIENT DENIES CHEST PAIN,SOA,N/V. PATIENT AMBULATED TO BATHROOM WITH STANDBY ASSIST. ADEQUATE URINARY OUTPUT.ICE PACK AND SLING USED AT LT SHOULDER.CALL LIGHT WITHIN REACH. BED ALARM ON.CONTINUE TO MONITOR.
[2016-10-05] MEDS: ASPIRIN *EC* 325mg TABLET PO SCH (07:55)
[2016-10-05 07:58] VITALS: BP 104/62; PULSE 72; RESP 18; TEMP 96.6; O2SAT 94
--- NOTE | 2016-10-05 08:25 | DI ---
Indication: ITS.REASON: POSTOP PROCEDURE: SHOULDER LEFT 1 VIEW: Encounter: Initial Comparison: None Findings: Left shoulder replacement appears intact. Expected postoperative subcutaneous gas. No evidence of hardware failure. No acute fracture. Impression: Postoperative changes .
[2016-10-05] MEDS ORDERED: MULTIVIT + MINERALS (OPTI-GEN) PO SCH (09:00)
[2016-10-05] MEDS ORDERED: AMLODIPINE 10 MG TABLET PO SCH (09:00)
[2016-10-05] MEDS ORDERED: LISINOPRIL/HCTZ 20mg/12.5mg TABLET PO SCH (09:00)
[2016-10-05] MEDS ORDERED: LANSOPRAZOLE SOLU-TAB 15 MG TABLET PO SCH (09:00)
[2016-10-05] MEDS ORDERED: POLYETHYL.GLYCOL 3350 PACKET 17gm PO SCH (09:00)
[2016-10-05] MEDS ORDERED: DOCUSATE SODIUM 100 MG CAPSULE PO SCH (09:00)
--- NOTE | 2016-10-05 10:23 | NUR ---
TELLY LEW SCORE IS 5. Addendum: 10/05/16 at 1023 by REED REED SW Amended: Links added.
--- NOTE | 2016-10-05 10:53 | PDORTHOPN ---
Subjective Date DATE: 10/05/16 TIME: 10:47 Subjective Sarah was seen this AM. She has no complaints. She states the Sulphur is controlling her pain, although she rates her pain at a 7/10. For her, this is acceptable. She denies chest pain or shortness of breath. She is anxious to go home. Objective Vital Signs Vital signs Vital Signs 10/04/16 10/05/16 10/05/16 23:50 03:34 07:58 Temp 97.8 95.8 96.6 Pulse 88 70 72 Resp 18 18 18 B/P 128/66 114/65 104/62 Pulse Ox 90 94 94 O2 Delivery Bi-pap Bi-pap Room Air O2 Flow Rate 2.00 Height (Feet): 5 Height (Inches): 8.00 Weight (Kilograms): 105.500 General General Appearance: Alert, Orientated x 3, No Acute Distress Respiratory (Brief) Respiratory Brief: FOUND: non-labored Cardiovascular (Brief) Cardiac: FOUND: calf easily compressible, calf soft, nontender, pedal pulses intact Capillary Refill: <2 sec Abdomen (Brief) Abdominal Brief: FOUND: non-tender Musculoskeletal (Brief) Comments Shoulder: strength and ROM deferred due to healing process. full ROM of wrist , fingers and hand. N/V intact throughout, block has worn off. Surgical Site Incision: FOUND: Mepilex dressing intact, no drainage Integumentary (Brief) Integumentary Brief: FOUND dry, FOUND pink, FOUND warm Neurologic (Brief) Neurological Brief: FOUND: extremities w/o deficits, neuro intact Psychiatric (Brief) Psychiatric Brief: FOUND: alert, no acute distress Laboratory Laboratory Laboratory Tests 10/05/16 05:00 Laboratory Tests 10/04/16 07:36 10/05/16 05:00 Assessment & Plan Problems: (1) HILARIA (obstructive sleep apnea) Status: Chronic Assessment & Plan: on room air, used CPap overnight. (2) Arthritis of shoulder region, left, degenerative Status: Acute Qualifiers: Osteoarthritis type: primary Qualified Codes: M19.012 - Primary osteoarthritis, left shoulder Assessment & Plan: s/p RTSA by Dr. Hill on 10/04/16. doing well afebrile leukocytosis, asymptomatic, monitor ASA for DVT prevention PT to mobilize, no left shoulder motion continue pain control likely discharge later today. Hospital Course Summary Disclaimer The visit summary below is not to be considered part of the above Progress Note. AGATA BARR Oct 05, 2016 10:51
[2016-10-05] MEDS ORDERED: ASPI-917 PO (11:20)
[2016-10-05] MEDS ORDERED: POLY17PO18 PO (11:20)
[2016-10-05] MEDS ORDERED: HYDR-4246 PO (11:20)
--- NOTE | 2016-10-05 11:37 | NUR ---
CM SPOKE WITH PT, INTRODUCED SELF, EXPLAINED ROLE, PROVIDED CONTACT INFO. PT STATED SHE LIVES HERE IN [place] WITH HER SPOUSE, LUCIO, AND HE DC PLAN IS TO RETURN HOME. SHE SAID LUCIO WILL PICK HER UP WHEN SHE IS RELEASED. SHE SAID HE TOOK THIS WEEK OFF OF WORK TO BE ABLE TO HELP HER NEEDED. SHE SAID SHE HAS A HOME CPAP AND DOES NOT NEED ANY FURTHER DME/SUPPLIES. SHE HAD NO QUESTION/NEEDS FOR THIS WORKER. Addendum: 10/05/16 at 1138 by REED HOLDEN Amended: Links added.
[2016-10-05 12:02] VITALS: BP 122/62; PULSE 82; RESP 16; TEMP 97.1; O2SAT 90
--- NOTE | 2016-10-05 12:40 | NUR ---
DISMISSED Patient dismissed to home with . Verbalized understanding of discharge instructions. Sling in place. Patient taken to front door per wheelchair with belongings. Safety maintained.
[2016-10-06] MEDS ORDERED: MILK OF MAGNESIA 30 ML SUSP PO SCH (08:00)
[2016-10-06] MEDS ORDERED: CEFAZOLIN 2 G in NORMAL SALINE 100 ML IV ONE (11:00)
[2016-10-06] MEDS ORDERED: BISACODYL 10 MG SUPPOSITORY RECTALLY SCH (20:00)
== END 2016-10-05 12:40 | disposition home or self-care (01) | DRG 483 ==
LOC: SRG 07:22
PROVIDERS: ADMIT Orthopaedic Surgery; ATTEND Orthopaedic Surgery
PROC: 5A09357 Assistance with Respiratory Ventilation, Less than 24 Consecutive Hours, Continuous Positive Airway Pressure (ICD-10-PCS; 2016-10-04)
PROC: 0RRK00Z Replacement of Left Shoulder Joint with Reverse Ball and Socket Synthetic Substitute, Open Approach (ICD-10-PCS; principal; 2016-10-04 11:08)
DX: M19.012 Primary osteoarthritis, left shoulder (principal); I10 Essential (primary) hypertension; E03.9 Hypothyroidism, unspecified; E78.5 Hyperlipidemia, unspecified; K21.9 Gastro-esophageal reflux disease without esophagitis; M75.102 Unspecified rotator cuff tear or rupture of left shoulder, not specified as traumatic; M66.812 Spontaneous rupture of other tendons, left shoulder; G47.33 Obstructive sleep apnea (adult) (pediatric); Z79.899 Other long term (current) drug therapy; Z79.82 Long term (current) use of aspirin
CPT/HCPCS: 36415; 80048; 85027